=== PATIENT | female | born 1950 | race Caucasian/White ===

== ENCOUNTER → 2016-08-17 | Outpatient (CLI) | payer BC ==
[~2016-08-17] MED LIST: ABILIFY2 MG PO; DYAZIDE 25 MG-31 CAP PO; LAMICTAL 25MG T25 MG PO; LEVOTHROID0.1 MG PO; LEVOXYL0.075 MG PO; LEXAPRO20 MG PO; PREMARIN 0.60.625 M1 PO; PRISTIQ50 M1 PO; VALTREX 50500 MG/TAB PO; ZOCOR 40MG40 MG PO; ZOCOR40 MG PO
== END ==
LOC: BHSO 15:16
DX: F41.1 Generalized anxiety disorder (principal)

== ENCOUNTER → 2016-10-11 | Outpatient (CLI) | payer BC | LOC: BHSO 15:56 | DX: F33.42 Major depressive disorder, recurrent, in full remission (principal) ==

== ENCOUNTER → 2017-04-12 | Outpatient (CLI) | payer BC | LOC: BHSO 16:22 | DX: F33.1 Major depressive disorder, recurrent, moderate (principal) ==

== ENCOUNTER → 2017-05-14 | Outpatient (CLI) | payer BC | LOC: BHSO 11:19 | DX: F33.1 Major depressive disorder, recurrent, moderate (principal) ==

== ENCOUNTER → 2017-06-11 | Outpatient (CLI) | payer BC | LOC: BHSO 16:13 | DX: F33.1 Major depressive disorder, recurrent, moderate (principal) ==

== ENCOUNTER → 2017-07-16 | Outpatient (CLI) | payer BC | LOC: BHSO 16:13 | DX: F41.1 Generalized anxiety disorder (principal) ==

== ENCOUNTER → 2017-08-08 | Outpatient (CLI) | payer BC | LOC: BHSO 15:55 | DX: F41.1 Generalized anxiety disorder (principal) | CPT/HCPCS: G0463 ==

== ENCOUNTER → 2018-07-09 | Outpatient (CLI) | payer BC | LOC: MC.RAD 16:08 | DX: Z12.31 Encounter for screening mammogram for malignant neoplasm of breast (principal) ==

== ENCOUNTER 2020-07-08 06:23 | Day surgery (SDC) | payer BC ==
[~2020-07-08] VITALS: Ht 157.5 cm; Wt 63.1 kg
[2020-07-08] MEDS ORDERED: MYRBETR50MG PO (06:47)
[2020-07-08] MEDS ORDERED: BRINTELLIX20 PO (06:47)
[2020-07-08] MEDS ORDERED: VITAMIN B125000 MCG PO (06:49)
[2020-07-08] MEDS ORDERED: BIOTIN10000 MC1 PO (06:49)
[2020-07-08] MEDS ORDERED: LAMICTAL 100MG100 MG PO (06:50)
[2020-07-08] MEDS ORDERED: FASTIN30 MG PO (06:50)
[2020-07-08] MEDS ORDERED: WELLBUTRIN XL150 MG PO (06:51)
[2020-07-08 07:05] VITALS: BP 120/73; PULSE 80; TEMP 96.3
--- NOTE | 2020-07-08 07:24 | NUR ---
Dr. Nina here to talk with the patient and all questions answered.
[2020-07-08 08:55] VITALS: BP 124/64; PULSE 73
--- NOTE | 2020-07-08 08:55 | NUR ---
TO RM 2 PER CART FROM ENDOSCOPY. ALERT ORIENTED X3, TALKING TO STAFF. AMBULATED TO RECLINER WITH ASSIST AND TOLERATED WELL. PATIENT WANTED TO WAIT TO EAT OR DRINK. DENIES NAUSEA OR VOMITING.
[2020-07-08 09:10] VITALS: BP 110/67; PULSE 67
--- NOTE | 2020-07-08 09:10 | NUR ---
RECEIVED CRANBERRY JUICE AND VANILLA PUDDING.
[2020-07-08 09:25] VITALS: BP 110/55; PULSE 70
--- NOTE | 2020-07-08 09:25 | NUR ---
ATE 100% AND TOLERATED WELL. DISCONTINUED IV AND INT- PATIENT GETTING DRESSED.
--- NOTE | 2020-07-08 09:37 | NUR ---
DR CASTANEDA INTO TO TALK WITH PATIENT.
--- NOTE | 2020-07-08 09:45 | NUR ---
RECEIVED DISCHARGE INSTRUCTIONS AND VERBALIZED UNDERSTANDING.
--- NOTE | 2020-07-08 09:52 | NUR ---
DISCHARGED PER WC BY NURSING STAFF TO PRIVATE CAR IN CARE OF FRIEND ARLETTE.
== END 2020-07-08 09:55 | disposition home or self-care (01) ==
LOC: SDCO 06:23
DX: Z12.11 Encounter for screening for malignant neoplasm of colon (principal); N39.41 Urge incontinence; I10 Essential (primary) hypertension; F41.1 Generalized anxiety disorder; E66.3 Overweight; F33.9 Major depressive disorder, recurrent, unspecified; M85.80 Other specified disorders of bone density and structure, unspecified site; E78.5 Hyperlipidemia, unspecified; E03.9 Hypothyroidism, unspecified; F41.9 Anxiety disorder, unspecified; Z20.828 Contact with and (suspected) exposure to other viral communicable diseases; Z90.710 Acquired absence of both cervix and uterus; Z68.26 Body mass index [BMI] 26.0-26.9, adult
CPT/HCPCS: J2704; J3010; J7120

== ENCOUNTER → 2021-06-28 | Outpatient (CLI) | payer BC ==
[~2021-06-28] MED LIST changes: +BIOTIN10000 MC1 PO; +BRINTELLIX20 PO; +FASTIN30 MG PO; +LAMICTAL 100MG100 MG PO; +MYRBETR50MG PO; +VITAMIN B125000 MCG PO; +WELLBUTRIN XL150 MG PO
== END ==
LOC: MC.RAD 08:30
DX: Z12.31 Encounter for screening mammogram for malignant neoplasm of breast (principal)

== ENCOUNTER 2023-11-16 17:13 | Emergency (ER) | payer MEDICARE ==
[~2023-11-16] VITALS: Ht 154.9 cm; Wt 70.9 kg
[~2023-11-16 17:13] MED LIST changes: +LAMICTAL200 MG PO; +PROZAC 20MG20 MG PO; +REMERON 15M15 MG/TA1 PO; +TIROSINT75 MC1 PO; +ULTRAM 50MG TAB50 MG PO; +WELLBUTRIN XL300 M1 PO
[2023-11-16 17:24] VITALS: TEMP 98.3
[2023-11-16 18:08] LABS: COLLECTION METHOD CLEAN CATCH
[2023-11-16 18:30] LABS: PH 5.5 (5.0-8.5); URINE APPEARANCE CLEAR (CLEAR/HAZY); URINE BLOOD NEGATIVE (NEGATIVE); URINE COLOR YELLOW (YELLOW); URINE GLUCOSE NEGATIVE (NEGATIVE); URINE KETONE NEGATIVE (NEGATIVE); URINE NITRATE NEGATIVE (NEGATIVE); URINE PROTEIN(semi-quant) NEGATIVE (NEGATIVE); URINE UROBILINOGEN 0.2 E.U/dL (0.2-1.0)
[2023-11-16 18:31] LABS: BASO # 0.2 K/mm3 (0.0-0.2); BASO % 1.7 % (0.0-2.0); EOS # 0.6 K/mm3 (0.0-0.7); EOS % 4.5 % (0.0-4.0); GRAN # 7.8 K/mm3 (1.4-6.5); GRAN % 61.2 % (42.2-75.2); HEMATOCRIT 43.5 % (37.0-47.0); HEMOGLOBIN 14.5 g/dl (12.5-16.0); LYMPH # 3.3 K/mm3 (1.2-3.4); MEAN CELL VOLUME 86 fl (80.0-100.0); MEAN CORPUSCULAR HEMOGLOBIN 29 pg (27-31); MEAN CORPUSCULAR HGB CONC 33 g/dl (33.0-37.0); MEAN PLATELET VOLUME 9.1 fl (7.4-10.4); MONO # 0.8 K/mm3 (0.1-0.6); MONO % 6.2 % (1.7-9.3); PLATELET COUNT 389 K/mm3 (130-400); RED BLOOD COUNT 5.04 M/mm3 (4.10-5.30); REDCELL DISTRIBUTION WIDTH-CV 13.1 % (11.5-14.5)
[2023-11-16 18:56] LABS: ALANINE AMINOTRANSFERASE 14 U/L (0-55); ALBUMIN 4.4 g/dL (3.4-4.8); ALKALINE PHOSPHATASE 127 U/L (40-150); ANION GAP 13 mmol/L (7-16); AST,SGOT 17 U/L (5-34); BILIRUBIN,TOTAL 0.3 mg/dL (0.2-1.2); BLOOD UREA NITROGEN 15 mg/dL (10-20); CALCIUM 10.2 mg/dL (8.4-10.2); CHLORIDE 106 mEq/L (98-107); CREATININE, serum 0.94 mg/dL (0.57-1.11); GLUCOSE 94 mg/dL (70-99); MAGNESIUM 2.4 mg/dL (1.6-2.6); SODIUM 141 mEq/L (136-145); TOTAL PROTEIN 7.7 g/dl (6.2-8.1)
[2023-11-16 19:03] LABS: TROPONIN-I < 0.010 ng/mL (0.00-0.033)
[2023-11-16] MEDS ORDERED: Iohexol 300 - 100 ML VIAL IV ONE (19:40)
[2023-11-16] MEDS ORDERED: NS 60 ML IV ONE (19:41)
[2023-11-16 21:25] VITALS: BP 124/58; PULSE 85
== END 2023-11-16 21:25 | disposition home or self-care (01) ==
LOC: COL.ER 17:13
PROVIDERS: Emergency Medicine
DX: R42 Dizziness and giddiness (principal); Z79.02 Long term (current) use of antithrombotics/antiplatelets; Z79.82 Long term (current) use of aspirin
CPT/HCPCS: Q9967

== ENCOUNTER 2024-05-23 12:00 | Emergency (ER) | payer SELFPAY ==
[~2024-05-23] VITALS: Ht 154.9 cm; Wt 72.7 kg
[2024-05-23 12:16] VITALS: TEMP 97.5
[2024-05-23 16:23] VITALS: BP 127/62; PULSE 76
== END 2024-05-23 16:23 | disposition home or self-care (01) ==
LOC: COL.ER 12:00
DX: S06.0X0A Concussion without loss of consciousness, initial encounter (principal); S01.111A Laceration without foreign body of right eyelid and periocular area, initial encounter; W10.9XXA Fall (on) (from) unspecified stairs and steps, initial encounter; Z79.82 Long term (current) use of aspirin